=== PATIENT | female | born 1950 | race Caucasian/White ===

== ENCOUNTER 2018-01-28 10:16 | Outpatient (CLI) | payer MEDICARE ==
--- NOTE | 2018-01-28 11:49 | RAD ---
TWO VIEWS CHEST: Date: 01-28-18 Comparison: None. History: Costochondral chest pain. FINDINGS: There is no pneumothorax or pleural fluid. There is no focal consolidation or alveolar edema. Heart a nd mediastinal contours appear grossly unremarkable. Lateral examination demonstrates a pectus excavatum deformity. IMPRESSION: No acute findings. Incidental findings as above. POS: [facility]
== END 2018-01-28 10:17 | disposition home or self-care (01) ==
LOC: RAD-FRANK 10:16
PROVIDERS: ATTEND Nurse Practitioner Family
DX: R07.1 Chest pain on breathing (principal)
CPT/HCPCS: 71046

== ENCOUNTER 2018-04-08 12:11 | Outpatient (CLI) | payer MEDICARE ==
--- NOTE | 2018-04-22 15:32 | MMO ---
Bilateral MAMMO Bilat Screen [facility]. CLINICAL HISTORY: Patient is 67 years old and is seen for screening. The patient has the following family history of breast cancer: grandmother. The patient has no personal history of cancer. VIEWS: The views performed were: bilateral craniocaudal with tomosynthesis and bilateral mediolateral oblique with tomosynthesis. FILMS COMPARED: The present examination has been compared to a prior imaging study performed at [facility] on 01/13/2017. MAMMOGRAM FINDINGS: The breasts are heterogeneously dense, which could obscure a lesion on mammography. There are benign appearing calcifications seen in both breasts. There are no suspicious masses, calcifications or areas of architectural distortion. IMPRESSION: CALCIFICATIONS IN BOTH BREASTS ARE BENIGN. A ROUTINE FOLLOW-UP MAMMOGRAM IN 1 YEAR IS RECOMMENDED. THE RESULTS OF THIS EXAM WERE SENT TO THE PATIENT. ACR BI-RADS Category 2 - Benign finding MAMMOGRAPHY NOTE: 1. A negative mammogram report should not delay a biopsy if a dominant of clinically suspicious mass is present. 2. Approximately 10% to 15% of breast cancers are not detected by mammography. 3. Adenosis and dense breasts may obscure an underlying neoplasm.
== END 2018-04-08 12:12 | disposition home or self-care (01) ==
LOC: BICMAMMO 12:11
PROVIDERS: ATTEND Nurse Practitioner Family
DX: Z12.31 Encounter for screening mammogram for malignant neoplasm of breast (principal); R92.1 Mammographic calcification found on diagnostic imaging of breast; Z80.3 Family history of malignant neoplasm of breast
CPT/HCPCS: 77063; 77067

== ENCOUNTER 2018-04-13 14:12 | Outpatient (CLI) | payer MEDICARE ==
--- NOTE | 2018-04-13 15:25 | ULT ---
RIGHT UNILATERAL VENOUS DOPPLER ULTRASOUND: HISTORY: Pain. COMPARISON: None. TECHNIQUE: Real-time, ramey-scale, color Doppler, and spectral analysis of the right lower extremity venous syste m is performed. The common femoral, femoral, proximal portion, greater saphenous, and deep femoral v eins, as well as the popliteal and posterior tibial veins are interrogated. FINDINGS: Normal flow, augmentation, and compression. IMPRESSION: No deep venous thrombosis. POS: [facility]
== END 2018-04-13 14:13 | disposition home or self-care (01) ==
LOC: BICULT 14:12
PROVIDERS: ATTEND Nurse Practitioner Family
DX: M79.604 Pain in right leg (principal)

== ENCOUNTER 2018-05-18 15:14 | Outpatient (CLI) | payer MEDICARE ==
--- NOTE | 2018-06-17 08:31 | RAD ---
EXAM: Chest Two Views 06/17/2018 8:28 AM HISTORY: TB evaluation COMPARISON: Chest radiograph dated January 28, 2018 FINDINGS: Exam submitted for interpretation on 06/17/2018. Heart: Normal in size and contour. Pulmonary vessels: Normal. Costophrenic angles: Clear. Lungs: No confluent pneumonia, overt edema, pleural effusion, or other acute process. Pneumothorax: None. Osseous structures:Intact. Additional findings: None. IMPRESSION: No significant acute intrathoracic disease.
== END 2018-05-18 15:15 | disposition home or self-care (01) ==
LOC: RAD-FRANK 15:14
PROVIDERS: ATTEND Nurse Practitioner Family
DX: R76.11 Nonspecific reaction to tuberculin skin test without active tuberculosis (principal)
CPT/HCPCS: 71046

== ENCOUNTER 2018-07-04 14:07 | Inpatient (IN) | payer MEDICARE ==
[2018-07-04 14:33] LABS: #Basophils 0.1 thou/uL (0.0-0.2); #Eosinphils 0.1 thou/uL (0.0-0.7); #Lymphocytes 2.1 thou/uL (1.20-3.40); #Monocytes 0.6 thou/uL (0.11-0.59); #Neutrophils 7.1 thou/uL (1.40-6.50); %Basophils 0.8 % (0.0-1.0); %Lymphocytes 20.9 % (21.0-51.0); %Monocytes 6.1 % (0.0-10.0); %Neutrophils 71.1 % (42.0-75.0); Hemoglobin 13.9 g/dL (12.0-16.0); Mean Corpuscular HGB CONC 34.4 g/dL (32.0-36.0); Mean Corpuscular Hemoglobin 31.1 pg (27.0-31.0); Mean Corpuscular Volume 90.3 fL (78.0-98.0); Mean Platelet Volume 8.9 fL (7.4-10.4); Platelet Count 204 thou/uL (130-400); Red Blood Cell (RBC) Count 4.47 mill/uL (4.20-5.40)
--- NOTE | 2018-07-04 14:42 | RAD ---
EXAM: Single view of the chest HISTORY: Syncope at a restaurant. Hit head on table. COMPARISON: None FINDINGS: Single view of the chest shows a normal sized cardiomediastinal silhouette. There is no kaci dence of consolidation, mass, or pleural effusion. The bones are unremarkable. IMPRESSION: No evidence of acute cardiopulmonary disease
[2018-07-04 14:55] LABS: ALT (SGPT) 14 U/L (8-55); AST (SGOT) 20 U/L (5-34); Albumin 4.4 g/dL (3.4-4.8); Alkaline Phosphatase 73 U/L (40-150); Anion Gap 14 mmol/L (10-20); BUN (Urea Nitrogen) 18 mg/dL (9.8-20.1); Bilirubin, Total 0.7 mg/dL (0.2-1.2); Calc. Creatinine Clearance 0 mL/min (70-130); Calcium 10.1 mg/dL (7.8-10.44); Carbon Dioxide 24 mmol/L (23-31); Chloride 103 mmol/L (98-107); Estimated GFR-MDRD 74; Globulin 2.8 g/dL (2.4-3.5); Glucose 114 mg/dL (80-115); Magnesium 2.1 mg/dL (1.6-2.6); Potassium 3.8 mmol/L (3.5-5.1); Protein, Total 7.2 g/dL (6.0-8.3); Sodium 137 mmol/L (136-145)
[2018-07-04] MEDS ORDERED: Aspirin Chewable 81 MG TAB ONE (15:39)
[2018-07-04] MEDS ORDERED: Enoxaparin Sodium 100 MG/ML SYRINGE ONE (15:50)
[2018-07-04] MEDS ORDERED: Acetaminophen 325 MG TAB PO PRN (16:16)
[2018-07-04] MEDS ORDERED: Ondansetron ODT 4 MG TAB SL PRN (17:25)
[2018-07-04] MEDS ORDERED: Ondansetron PF 4 MG/2 ML Vial IVP PRN (17:25)
[2018-07-04 18:27] VITALS: BMI 30.9
[2018-07-04 18:39] LABS: Troponin I Less than 0.010 ng/mL (< 0.028)
[2018-07-04] MEDS: Famotidine/PF 20 mg/2ml Vial SLOW IVP SCH (20:38)
[2018-07-04] MEDS: Enoxaparin Sodium 80 MG/0.8 ML SYRINGE SC SCH (20:38)
[2018-07-04 21:58] LABS: Troponin I Less than 0.010 ng/mL (< 0.028)
--- NOTE | 2018-07-04 22:11 | HP ---
CHIEF COMPLAINT: Syncope. HISTORY OF PRESENT ILLNESS: The patient is a 67-year-old female with a history of hypertension, anxiety, and hypothyroidism, who presents to the hospital after having a syncopal episode today. The patient stated that yesterday she walked about two blocks with her grandkids. After her walk, she felt very lightheaded and felt in a daze. The patient stated that she sat down in a chair for long periods of time and then went off to bed. The patient stated that she just did not feel well. She attributed this to possible dehydration since it was really hot outside yesterday. The patient also states that she has had multiple episodes of dehydration. The patient states that at times in the past she has had chest pain, which she has attributed to costochondritis given her abnormal chest wall area. She denies any chest pain or pressure recently. The patient stated that today she went out with her , had a full lunch, and started feeling unwell; when her came around to help her, she was slumped over and passed out. At this time, EMS was summoned and the patient was brought into the ER for further evaluation. In the ED, the patient was found to be in sinus-marino; however, when the patient was undergoing a chest x-ray, she had about 8 to 10 beats of ventricular tachycardia. The patient at that time was asymptomatic and at this time, Cardiology was called. PAST MEDICAL HISTORY: 1. Hypertension. 2. Hypothyroidism. 3. Anxiety. 4. Some bladder issues and latent TB. PAST SURGICAL HISTORY: She has had appendectomy, tonsillectomy and hysterectomy. SOCIAL HISTORY: She is a full code, lives with her . Denies any alcohol use or drug use. Occasionally, seldom use of beer. FAMILY HISTORY: Mother has heart disease. REVIEW OF SYSTEMS: All negative except for the ones mentioned above in HPI. MEDICATIONS: She does not recall the name of her medications. I have advised the family to bring her medications. ALLERGIES: SHE HAS NO KNOWN DRUG ALLERGIES. PHYSICAL EXAMINATION: VITAL SIGNS: Temperature of 98.5, heart rate of 58, respirations 16, 100% on room air, blood pressure 134/74. GENERAL: She is awake, alert, and oriented x3. Does not appear in distress. HEENT: Normocephalic, atraumatic. No lymphadenopathy noted. Pupils are equal and reactive to light. CV: S1 and S2 present. No murmurs, rubs, or gallops. LUNGS: Clear to auscultation. No rhonchi or wheezes noted. ABDOMEN: Soft and nontender. Bowel sounds are present x2. EXTREMITIES: No edema. Pedal pulses are present x2. NEUROVASCULAR: No focal deficits noted. SKIN: No cuts, lesions or bruises noted. LABORATORY DATA: Laboratory results are as of the following: WBCs of 10.0, hemoglobin of 13.9, hematocrit of 40.4, platelets of 204. Sodium of 137, potassium of 3.8, BUN of 18, creatinine 0.78. Troponin x1 is negative. TSH is 0.2116. Chest x-ray did not show any acute processes. ASSESSMENT AND PLAN: The patient is a very pleasant 67-year-old female, who presents to the hospital after having a syncopal episode. 1. Syncope, most likely secondary to cardiac arrhythmia. The patient did have about 8 to 10 beats, I believe, of ventricular tachycardia while she was here. Cardiology has been consulted. We will check an echocardiogram. We will start the patient on Lovenox and aspirin. The patient will most likely require cardiac catheterization. Currently, she is n.p.o. and she is chest pain free. 2. Hypertension. I have asked the family to bring her blood pressure medications in. She denies use of any beta blockers. 3. History of hypothyroidism. We will check a free T4 and continue her home medications. 4. Deep venous thrombosis prophylaxis. She is probably going to be on full-dose anticoagulation. Job ID: [id number]
--- NOTE | 2018-07-04 22:30 | CON ---
DATE OF CONSULTATION: 07/04/2018 REASON FOR CONSULTATION: Syncope, sinus bradycardia, ventricular tachycardia. HISTORY OF PRESENT ILLNESS: Ms. Coates is a very pleasant 67-year-old woman. She has a history of hypertension and she has a history of hypothyroidism, is on replacement therapy. The patient was doing well up until yesterday. She said she walked outside when it was relatively hot, got lightheaded, drank a lot of water, felt better, but then today she felt well. She went to eat at the [employer]. She was sitting at the table when she suddenly felt very lightheaded and then after only a few seconds completely lost consciousness. Her said she fell straight forward onto the table. He went over and rested her to side and had her back up upright in a sitting position when she came to she said she remembers not being able to breathe well. An ambulance was called. She was brought here for further evaluation. Since she has been here, she has had some sinus bradycardia and one episode of monomorphic ventricular tachycardia. No previous history of cardiac problems. PAST MEDICAL HISTORY: She has a history of hypertension. The patient was on an angiotensin receptor fernando. It was no longer available. She had to be changed to a different medicine in the same class of angiotensin receptor blockers. No other blood pressure medicines. FAMILY HISTORY: No family history of heart disease at young age. SOCIAL HISTORY: No alcohol or tobacco abuse. REVIEW OF SYSTEMS: CONSTITUTIONAL: No significant weight gain or loss. VISION: No changes. HEARING: No changes. PULMONARY: No cough or wheezing. GASTROINTESTINAL: No nausea, vomiting or diarrhea. SKIN: No rashes. NEUROLOGIC: No unilateral weakness or numbness. PSYCHIATRIC: No unusual depression or anxiety. HEMATOLOGIC: No unusual bruising. GENITOURINARY: No burning with urination MUSCULOSKELETAL: No unusual joint pain. ALLERGY: None known. PHYSICAL EXAMINATION: GENERAL: This is a pleasant 67-year-old woman, resting comfortably, in no distress. VITAL SIGNS: The blood pressures in the emergency room have been within normal limits. Please see nurse's notes. Pulse is in the 50s, it is sinus bradycardia. EYES: Sclerae nonicteric. MOUTH: Mucous membranes moist. NECK: Supple. No lymphadenopathy. LUNGS: Clear. No wheezing, rales, or rhonchi. CARDIAC: Mild bradycardia, but there is no murmur, rub, or gallop. ABDOMEN: Soft and nontender. No hepatosplenomegaly. EXTREMITIES: Warm and dry. Peripheral pulses are normal. Posterior tibial and dorsalis pedis pulses bilaterally. PERTINENT LABORATORY DATA: The troponin levels were negative. EKG showed no acute ST or T-wave changes. The QRS has normal width, the PA interval has normal width, QT interval has normal width. Echocardiogram showed the ejection fraction is normal. There is no significant valvular heart disease. The patient did have an episode of monomorphic ventricular tachycardia. The rate was approximately 160 beats per minute with some variability in the heart rate, it is a 14-beat episode of ventricular tachycardia. There is no pause following the tachycardia. ASSESSMENT: Syncopal episode. Sinus bradycardia. Ventricular tachycardia, nonsustained. Normal left ventricular function. History of hypertension, on angiotensin receptor fernando. Hypothyroidism on replacement therapy. At this time, it seems very likely that her symptom was related to a dysrhythmia that occurred suddenly with very little warning and in the sitting position. In addition, she came to while she was still sitting, which argues for an arrhythmia that had terminated and her blood pressure came back up. It really does not sound like vasovagal syncope. Certainly could have fainted due to significant symptomatic sinus bradycardia or pauses. Also ventricular tachycardia can certainly cause fainting in a sitting position. She currently has no evidence of any left ventricular dysfunction, but could have underlying coronary disease. PLAN: 1. She received a single dose of Lovenox. 2. Echocardiogram was within normal limits as outlined above. Please see the report for the full details. 3. We will likely need cardiac catheterization to see, if she has underlying coronary disease. 4. Depending on the clinical course, she may need electrophysiologic evaluation in view of the ventricular tachycardia with syncope. 5. Further cardiac enzymes to be done. We will continue to follow with you. 6. Prognosis guarded. Most likely did have an arrhythmia causing her syncopal episode. Job ID: [id number]
[2018-07-05 06:38] LABS: #Basophils 0.1 thou/uL (0.0-0.2); #Eosinphils 0.1 thou/uL (0.0-0.7); #Lymphocytes 1.9 thou/uL (1.20-3.40); #Monocytes 0.5 thou/uL (0.11-0.59); #Neutrophils 4.2 thou/uL (1.40-6.50); %Eosinophils 1.1 % (0.0-10.0); %Monocytes 7.1 % (0.0-10.0); %Neutrophils 62.8 % (42.0-75.0); Hemoglobin 14.4 g/dL (12.0-16.0); Mean Corpuscular Hemoglobin 30.3 pg (27.0-31.0); Mean Platelet Volume 8.3 fL (7.4-10.4); Platelet Count 207 thou/uL (130-400); RBC Distribution Width 12.1 % (11.5-14.5); Red Blood Cell (RBC) Count 4.76 mill/uL (4.20-5.40); White Blood Cell (WBC) Count 6.7 thou/uL (4.8-10.8)
[2018-07-05 06:58] LABS: Anion Gap 11 mmol/L (10-20); BUN (Urea Nitrogen) 15 mg/dL (9.8-20.1); Calc. Creatinine Clearance 108 mL/min (70-130); Calcium 9.9 mg/dL (7.8-10.44); Carbon Dioxide 24 mmol/L (23-31); Chloride 108 mmol/L (98-107); Estimated GFR-MDRD 80; Glucose 90 mg/dL (80-115); Sodium 139 mmol/L (136-145)
[2018-07-05] MEDS ORDERED: Aspirin 325 mg Enteric Coated Tablet PO SCH (09:00)
[2018-07-05] MEDS: Enoxaparin Sodium 80 MG/0.8 ML SYRINGE SC SCH (09:57)
[2018-07-05] MEDS: Famotidine/PF 20 mg/2ml Vial SLOW IVP SCH ×2 (09:59→22:06)
--- NOTE | 2018-07-05 10:27 | PDOC.PN ---
- Subjective Encounter Start Date: 07/05/18 Encounter Start Time: 09:50 -: old records requested/rev Patient seen and examined. No new complaints. No overnight events - Objective Resuscitation Status - Order Detail: 07/04/18 16:16 Resuscitation Status Routine Resuscitation Status: FULL: Full Resuscitation MAR Reviewed: Yes Vital Signs & Weight: Vital Signs (12 hours) Temp Pulse Ox 07/05/18 08:27 98 07/05/18 07:15 96.6 F L 07/05/18 04:20 98.3 F 07/05/18 00:26 97.4 F L Weight Weight 197 lb 3.2 oz Most Recent Monitor Data Heart Rate from ECG 66 NIBP 120/61 NIBP BP-Mean 80 Respiration from ECG 19 SpO2 99 I&O: 07/04/18 07/05/18 07/06/18 06:59 06:59 06:59 Intake Total 370 Output Total 625 Balance -255 Result Diagrams: 07/05/18 06:19 07/05/18 06:19 Radiology Reviewed by me: Yes EKG Reviewed by me: Yes (sinus bradycardia) Phys Exam - Physical Examination Constitutional: NAD HEENT: PERRLA, moist MMs, sclera anicteric Neck: no JVD, supple Respiratory: no wheezing, no rales, no rhonchi Cardiovascular: RRR, no significant murmur, no rub Gastrointestinal: soft, non-tender, no distention, positive bowel sounds Musculoskeletal: no edema, pulses present Neurological: non-focal, normal sensation, moves all 4 limbs Lymphatic: no nodes Psychiatric: normal affect, A&O x 3 Skin: no rash, normal turgor Dx/Plan (1) Syncope, cardiogenic Code(s): R55 - SYNCOPE AND COLLAPSE Status: Acute (2) NSVT (nonsustained ventricular tachycardia) Code(s): I47.2 - VENTRICULAR TACHYCARDIA Status: Acute (3) Sinus bradycardia Code(s): R00.1 - BRADYCARDIA, UNSPECIFIED Status: Acute (4) Anxiety and depression Code(s): F41.9 - ANXIETY DISORDER, UNSPECIFIED; F32.9 - MAJOR DEPRESSIVE DISORDER, SINGLE EPISODE, UNSPECIFIED Status: Chronic (5) GERD (gastroesophageal reflux disease) Code(s): K21.9 - GASTRO-ESOPHAGEAL REFLUX DISEASE WITHOUT ESOPHAGITIS Status: Chronic (6) Hypertension Code(s): I10 - ESSENTIAL (PRIMARY) HYPERTENSION Status: Chronic (7) Hypothyroidism Code(s): E03.9 - HYPOTHYROIDISM, UNSPECIFIED Status: Chronic (8) Obesity (BMI 30.0-34.9) Code(s): E66.9 - OBESITY, UNSPECIFIED Status: Chronic - Plan cont current plan of care * transfer to tele * cardiology recommendation noted * medication reviewed as below * symptomatic treatment * will monitor. may need further evaluation, ?cardiac cath and or EP * DC Lovenox Review of Systems - Review of Systems ENT: negative: Ear Pain, Ear Discharge, Nose Pain, Nose Discharge, Nose Congestion, Mouth Pain, Mouth Swelling, Throat Pain, Throat Swelling, Other Respiratory: negative: Cough, Dry, Shortness of Breath, Hemoptysis, SOB with Excertion, Pleuritic Pain, Sputum, Wheezing Cardiovascular: negative: chest pain, palpitations, orthopnea, paroxysmal nocturnal dyspnea, edema, light headedness, other Gastrointestinal: negative: Nausea, Vomiting, Abdominal Pain, Diarrhea, Constipation, Melena, Hematochezia, Other Genitourinary: negative: Dysuria, Frequency, Incontinence, Hematuria, Retention , Other Musculoskeletal: negative: Neck Pain, Shoulder Pain, Arm Pain, Back Pain, Hand Pain, Leg Pain, Foot Pain, Other Skin: negative: Rash, Lesions, Gopal, Bruising, Other - Medications/Allergies Allergies/Adverse Reactions: Allergies Allergy/AdvReac Type Severity Reaction Status Date / Time No Known Allergies Allergy Verified 07/04/18 18:21 Medications: Current Medications Acetaminophen (Tylenol) 650 mg PO Q4H PRN PRN Reason: Headache/Fever/Mild Pain (1-3) Aspirin (Ecotrin) 325 mg PO DAILY [facility] Last Admin: 07/05/18 09:57 Dose: 325 mg Enoxaparin Sodium (Lovenox) 80 mg SC 0900,2100 [facility] Last Admin: 07/05/18 09:57 Dose: 80 mg Famotidine (Pepcid) 20 mg SLOW IVP Q12HR [facility] Last Admin: 07/05/18 09:59 Dose: 20 mg Sodium Chloride (Flush - Normal Saline) 10 ml IVF Q12HR [facility] Last Admin: 07/05/18 10:18 Dose: 10 ml Sodium Chloride (Flush - Normal Saline) 10 ml IVF PRN PRN PRN Reason: Saline Flush
[2018-07-05] MEDS ORDERED: Ondansetron PF 4 MG/2 ML Vial IVP PRN (10:28)
[2018-07-05] MEDS ORDERED: Loratadine 10 MG TAB PO PRN (10:28)
[2018-07-05] MEDS ORDERED: Cepastat Lozenges 1 LOZ PO PRN (10:28)
[2018-07-05] MEDS ORDERED: Loperamide HCl 2 MG CAP PO PRN (10:28)
[2018-07-05] MEDS ORDERED: Ondansetron ODT 4 MG TAB PO PRN (10:28)
[2018-07-05] MEDS ORDERED: Bisacodyl 10 MG SUPP PR PRN (10:28)
[2018-07-05] MEDS ORDERED: Diabetic Tussin 200 MG/10 ML UDCUP PO PRN (10:28)
[2018-07-05] MEDS ORDERED: Artificial Tears 18 DROP/0.9 ML EA EYE PRN (10:28)
[2018-07-05] MEDS ORDERED: Zolpidem Tartrate 5 MG TAB PO PRN (10:28)
[2018-07-05] MEDS ORDERED: hydrALAZINE 20 MG/ML VIAL SLOW IVP PRN (10:28)
[2018-07-05] MEDS ORDERED: HYDROcodone/Acetaminophen 5/325 mg Tablet PO PRN (10:28)
[2018-07-05] MEDS ORDERED: Sodium Chloride 0.65% Nasal 44 ML BOT EA NARE PRN (10:28)
[2018-07-05] MEDS ORDERED: Senokot S 8.6-50 MG TAB PO PRN (10:28)
[2018-07-05] MEDS ORDERED: Communication Order-Pharmacy FS SCH (10:45)
--- NOTE | 2018-07-05 11:05 | PRG ---
DATE OF SERVICE: 07/05/2018 SUBJECTIVE: Ms. Coates had a good night. No chest pain or pressure. OBJECTIVE: GENERAL: She is feeling well. VITAL SIGNS: Her blood pressure 120/60 and pulse 90. LUNGS: Clear. CARDIAC: Normal S1, normal S2. ABDOMEN: Soft and nontender. IMAGING STUDIES: Echocardiogram was unremarkable. Cardiac enzymes were negative. ASSESSMENT: 1. Syncopal episode in the sitting position without much warning. 2. Mild sinus bradycardia identified. 3. One episode of nonsustained ventricular tachycardia. PLAN: Need to see if she has underlying coronary disease. Discussed risk of cardiac catheterization and stenting if indicated. Discussed risk, stroke, heart attack, iodine allergy, loss of blood supply to leg or kidney, stent thrombosis, and stent restenosis. The patient understands and wished to proceed. If the cardiac catheterization is negative, we will need electrophysiologic consultation. Job ID: [id number]
[2018-07-05] MEDS ORDERED: FESOTERODINE FUMARATE 4 MG PO SCH (21:00)
[2018-07-06] MEDS: Losartan 25 MG TAB PO SCH (05:57)
[2018-07-06] MEDS: PARoxetine 20 MG TAB PO SCH (06:00)
[2018-07-06] MEDS ORDERED: Sodium Chloride 0.9% 1,000 ML IV SCH (06:00)
[2018-07-06] MEDS ORDERED: Diazepam 5 MG TAB PO SCH (06:00)
[2018-07-06] MEDS: Levothyroxine Sodium 100 MCG TAB PO SCH (06:00)
[2018-07-06] MEDS: Famotidine/PF 20 mg/2ml Vial SLOW IVP SCH (06:12)
[2018-07-06] MEDS ORDERED: Spironolactone 25 MG TAB PO SCH (08:00)
[2018-07-06] MEDS ORDERED: Fentanyl 100 MCG/2 ML VIAL ONE (08:01)
[2018-07-06] MEDS ORDERED: Midazolam HCl 2 mg/2 ml Vial ONE (08:02)
[2018-07-06] MEDS ORDERED: Sodium Chloride 0.9% 200 ML IV PRN (08:40)
[2018-07-06] MEDS ORDERED: Nitroglycerin 0.4 MG TAB (25 Tab Bottle) SL PRN (08:40)
[2018-07-06] MEDS ORDERED: Acetaminophen/Codeine 30-300mg Tablet PO PRN ×2 (08:40)
[2018-07-06] MEDS ORDERED: Aspirin 81 mg Enteric Coated Tablet PO SCH (09:00)
[2018-07-06] MEDS ORDERED: Trospium 20 MG TAB PO SCH (09:00)
[2018-07-06] MEDS ORDERED: Iopamidol 370 76% 100 ML VIAL ONE (11:40)
--- NOTE | 2018-07-06 14:28 | PDOC.PN ---
- Subjective Encounter Start Date: 07/06/18 Encounter Start Time: 14:26 Subjective: pt up in bed no complains - Objective Resuscitation Status - Order Detail: 07/04/18 16:16 Resuscitation Status Routine Resuscitation Status: FULL: Full Resuscitation Vital Signs & Weight: Vital Signs (12 hours) Temp Pulse Resp BP BP BP Pulse Ox 07/06/18 13:00 98.2 F 57 L 18 127/60 100 07/06/18 12:00 98.2 F 55 L 18 122/55 L 100 07/06/18 09:00 50 L 16 136/63 07/06/18 07:20 98.2 F 55 L 18 127/62 99 07/06/18 03:50 97.6 F 65 14 117/58 L 99 Weight Weight 197 lb 3.2 oz Most Recent Monitor Data Heart Rate from ECG 67 NIBP 105/52 NIBP BP-Mean 69 Respiration from ECG 26 SpO2 97 I&O: 07/05/18 07/06/18 07/07/18 06:59 06:59 06:59 Intake Total 289 781 7330 Output Total 625 900 Balance -255 322 180 Result Diagrams: 07/05/18 06:19 07/05/18 06:19 Phys Exam - Physical Examination Respiratory: no wheezing, no rales, no rhonchi, wheezing present, clear to auscultation bilateral Cardiovascular: RRR, no significant murmur, no rub, gallop, irregular Gastrointestinal: soft, non-tender, no distention, positive bowel sounds Dx/Plan (1) Syncope, cardiogenic Code(s): R55 - SYNCOPE AND COLLAPSE Status: Acute (2) NSVT (nonsustained ventricular tachycardia) Code(s): I47.2 - VENTRICULAR TACHYCARDIA Status: Acute (3) Anxiety and depression Code(s): F41.9 - ANXIETY DISORDER, UNSPECIFIED; F32.9 - MAJOR DEPRESSIVE DISORDER, SINGLE EPISODE, UNSPECIFIED Status: Chronic (4) Hypertension Code(s): I10 - ESSENTIAL (PRIMARY) HYPERTENSION Status: Chronic - Plan pt had her cath which indicated ef of 60% with normal coronary -: pt will be seen by EP in am for her Vtach. will keep pt npo after -: midnight tonight. * . Review of Systems - Review of Systems Respiratory: negative: Cough, Dry, Shortness of Breath, Hemoptysis, SOB with Excertion, Pleuritic Pain, Sputum, Wheezing Cardiovascular: negative: chest pain, palpitations, orthopnea, paroxysmal nocturnal dyspnea, edema, light headedness, other Gastrointestinal: negative: Nausea, Vomiting, Abdominal Pain, Diarrhea, Constipation, Melena, Hematochezia, Other - Medications/Allergies Allergies/Adverse Reactions: Allergies Allergy/AdvReac Type Severity Reaction Status Date / Time No Known Allergies Allergy Verified 07/04/18 18:21 Medications: Current Medications Acetaminophen (Tylenol) 650 mg PO Q4H PRN PRN Reason: Headache/Fever/Mild Pain (1-3) Acetaminophen/Codeine Phosphate (Tylenol #3) 1 tab PO Q4H PRN PRN Reason: Mild Pain (1-3) Acetaminophen/Codeine Phosphate (Tylenol #3) 2 tab PO Q4H PRN PRN Reason: Moderate Pain (4-6) Hydrocodone Bitart/Acetaminophen ([place] 5/325) 1 tab PO Q4H PRN PRN Reason: Moderate Pain (4-6) Artificial Tears (Tears Naturale) 2 drop EA EYE PRN PRN PRN Reason: Dry Eyes Bisacodyl (Dulcolax) 10 mg MA DAILYPRN PRN PRN Reason: Constipation Famotidine (Pepcid) 20 mg PO BID [facility] Guaifenesin (Robitussin Sf) 200 mg PO Q4H PRN PRN Reason: Cough Hydralazine HCl (Apresoline) 10 mg SLOW IVP Q4H PRN PRN Reason: SBP > 180 and HR < 70 Levothyroxine Sodium (Synthroid) 100 mcg PO 0600 [facility] Last Admin: 07/06/18 06:00 Dose: 100 mcg Loperamide HCl (Imodium) 2 mg PO PRN PRN PRN Reason: Diarrhea/Loose Stools Loratadine (Claritin) 10 mg PO DAILYPRN PRN PRN Reason: Sinus Symptoms Losartan Potassium (Cozaar) 100 mg PO DAILY [facility] Last Admin: 07/06/18 05:57 Dose: 100 mg Nitroglycerin (Nitrostat) 0.4 mg SL Q5MIN PRN PRN Reason: Chest Pain Non-Formulary Medication (Fesoterodine Fumarate [Toviaz]) 4 mg PO QPM [facility] Ondansetron HCl (Zofran Odt) 4 mg PO Q6H PRN PRN Reason: Nausea/Vomiting Ondansetron HCl (Zofran) 4 mg IVP Q6H PRN PRN Reason: Nausea/Vomiting Paroxetine HCl (Paxil) 20 mg PO DAILY [facility] Last Admin: 07/06/18 06:00 Dose: 20 mg Senna/Docusate Sodium (Senokot S) 2 tab PO BID PRN PRN Reason: Constipation Sodium Chloride (Flush - Normal Saline) 10 ml IVF Q12HR [facility] Last Admin: 07/06/18 13:33 Dose: Not Given Sodium Chloride (Flush - Normal Saline) 10 ml IVF PRN PRN PRN Reason: Saline Flush Sodium Chloride ([place] Nasal [place] 0.65%) 0 ml EA NARE QIDPRN PRN PRN Reason: Nasal Congestion Spironolactone (Aldactone) 25 mg PO QAM-WM [facility] Throat Lozenges (Cepastat Lozenges) 1 robby PO Q2H PRN PRN Reason: Sore Throat Zolpidem Tartrate (Ambien) 5 mg PO HSPRN PRN PRN Reason: Insomnia
[2018-07-06] MEDS: Famotidine 20 MG TAB PO SCH (21:05)
[2018-07-07] MEDS: Levothyroxine Sodium 100 MCG TAB PO SCH (05:51)
[2018-07-07] MEDS ORDERED: Spironolactone 25 MG TAB PO SCH (08:00)
[2018-07-07 08:15] VITALS: TEMP 98.1
--- NOTE | 2018-07-07 10:42 | PDOC.PN ---
- Subjective Encounter Start Date: 07/07/18 Encounter Start Time: 07:50 -: old records requested/rev Patient seen and examined. No new complaints. No overnight events - Objective Resuscitation Status - Order Detail: 07/04/18 16:16 Resuscitation Status Routine Resuscitation Status: FULL: Full Resuscitation MAR Reviewed: Yes Vital Signs & Weight: Vital Signs (12 hours) Temp Pulse Resp BP BP Pulse Ox 07/07/18 07:25 98.1 F 55 L 18 116/55 L 96 07/07/18 03:39 97.6 F 56 L 15 128/59 L 98 Weight Weight 197 lb 3.2 oz Most Recent Monitor Data Heart Rate from ECG 67 NIBP 105/52 NIBP BP-Mean 69 Respiration from ECG 26 SpO2 97 I&O: 07/06/18 07/07/18 07/08/18 06:59 06:59 06:59 Intake Total 322 1320 Output Total 1350 Balance 322 -30 Result Diagrams: 07/05/18 06:19 07/05/18 06:19 EKG Reviewed by me: Yes Phys Exam - Physical Examination Constitutional: NAD HEENT: PERRLA, moist MMs, sclera anicteric Neck: no JVD, supple Respiratory: no wheezing, no rales, no rhonchi Cardiovascular: RRR, no significant murmur, no rub Gastrointestinal: soft, non-tender, no distention, positive bowel sounds Musculoskeletal: no edema, pulses present Neurological: non-focal, normal sensation, moves all 4 limbs Psychiatric: normal affect, A&O x 3 Skin: no rash, normal turgor Dx/Plan (1) Syncope, cardiogenic Code(s): R55 - SYNCOPE AND COLLAPSE Status: Acute (2) NSVT (nonsustained ventricular tachycardia) Code(s): I47.2 - VENTRICULAR TACHYCARDIA Status: Acute (3) Sinus bradycardia Code(s): R00.1 - BRADYCARDIA, UNSPECIFIED Status: Acute (4) Anxiety and depression Code(s): F41.9 - ANXIETY DISORDER, UNSPECIFIED; F32.9 - MAJOR DEPRESSIVE DISORDER, SINGLE EPISODE, UNSPECIFIED Status: Chronic (5) GERD (gastroesophageal reflux disease) Code(s): K21.9 - GASTRO-ESOPHAGEAL REFLUX DISEASE WITHOUT ESOPHAGITIS Status: Chronic (6) Hypertension Code(s): I10 - ESSENTIAL (PRIMARY) HYPERTENSION Status: Chronic (7) Hypothyroidism Code(s): E03.9 - HYPOTHYROIDISM, UNSPECIFIED Status: Chronic (8) Obesity (BMI 30.0-34.9) Code(s): E66.9 - OBESITY, UNSPECIFIED Status: Chronic - Plan cont current plan of care, plan discussed w/ family * EP consulted * medication reviewed as below * symptomatic treatment * discharge based on EP recommendation. Review of Systems - Review of Systems ENT: negative: Ear Pain, Ear Discharge, Nose Pain, Nose Discharge, Nose Congestion, Mouth Pain, Mouth Swelling, Throat Pain, Throat Swelling, Other Respiratory: negative: Cough, Dry, Shortness of Breath, Hemoptysis, SOB with Excertion, Pleuritic Pain, Sputum, Wheezing Cardiovascular: negative: chest pain, palpitations, orthopnea, paroxysmal nocturnal dyspnea, edema, light headedness, other Gastrointestinal: negative: Nausea, Vomiting, Abdominal Pain, Diarrhea, Constipation, Melena, Hematochezia, Other Genitourinary: negative: Dysuria, Frequency, Incontinence, Hematuria, Retention , Other Musculoskeletal: negative: Neck Pain, Shoulder Pain, Arm Pain, Back Pain, Hand Pain, Leg Pain, Foot Pain, Other - Medications/Allergies Allergies/Adverse Reactions: Allergies Allergy/AdvReac Type Severity Reaction Status Date / Time No Known Allergies Allergy Verified 07/04/18 18:21 Medications: Current Medications Acetaminophen (Tylenol) 650 mg PO Q4H PRN PRN Reason: Headache/Fever/Mild Pain (1-3) Acetaminophen/Codeine Phosphate (Tylenol #3) 1 tab PO Q4H PRN PRN Reason: Mild Pain (1-3) Acetaminophen/Codeine Phosphate (Tylenol #3) 2 tab PO Q4H PRN PRN Reason: Moderate Pain (4-6) Hydrocodone Bitart/Acetaminophen ([place] 5/325) 1 tab PO Q4H PRN PRN Reason: Moderate Pain (4-6) Artificial Tears (Tears Naturale) 2 drop EA EYE PRN PRN PRN Reason: Dry Eyes Bisacodyl (Dulcolax) 10 mg [place] DAILYPRN PRN PRN Reason: Constipation Famotidine (Pepcid) 20 mg PO BID FATIMAH Last Admin: 07/06/18 21:05 Dose: 20 mg Guaifenesin (Robitussin Sf) 200 mg PO Q4H PRN PRN Reason: Cough Hydralazine HCl (Apresoline) 10 mg SLOW IVP Q4H PRN PRN Reason: SBP > 180 and HR < 70 Levothyroxine Sodium (Synthroid) 100 mcg PO 0600 [facility] Last Admin: 07/07/18 05:51 Dose: 100 mcg Loperamide HCl (Imodium) 2 mg PO PRN PRN PRN Reason: Diarrhea/Loose Stools Loratadine (Claritin) 10 mg PO DAILYPRN PRN PRN Reason: Sinus Symptoms Losartan Potassium (Cozaar) 100 mg PO DAILY [facility] Last Admin: 07/06/18 05:57 Dose: 100 mg Nitroglycerin (Nitrostat) 0.4 mg SL Q5MIN PRN PRN Reason: Chest Pain Non-Formulary Medication (Fesoterodine Fumarate [Toviaz]) 4 mg PO QPM [facility] Ondansetron HCl (Zofran Odt) 4 mg PO Q6H PRN PRN Reason: Nausea/Vomiting Ondansetron HCl (Zofran) 4 mg IVP Q6H PRN PRN Reason: Nausea/Vomiting Paroxetine HCl (Paxil) 20 mg PO DAILY [facility] Last Admin: 07/06/18 06:00 Dose: 20 mg Senna/Docusate Sodium (Senokot S) 2 tab PO BID PRN PRN Reason: Constipation Sodium Chloride (Flush - Normal Saline) 10 ml IVF Q12HR [facility] Last Admin: 07/06/18 21:05 Dose: 10 ml Sodium Chloride (Flush - Normal Saline) 10 ml IVF PRN PRN PRN Reason: Saline Flush Sodium Chloride ([place] Nasal [place] 0.65%) 0 ml EA NARE QIDPRN PRN PRN Reason: Nasal Congestion Spironolactone (Aldactone) 25 mg PO QAM[facility] Throat Lozenges (Cepastat Lozenges) 1 robby PO Q2H PRN PRN Reason: Sore Throat Zolpidem Tartrate (Ambien) 5 mg PO HSPRN PRN PRN Reason: Insomnia
[2018-07-07] MEDS ORDERED: Heparin 10,000 UNITS/1 ML VIAL ONE (11:05)
[2018-07-07] MEDS ORDERED: Heparin 0 ML ONE (11:06)
[2018-07-07] MEDS ORDERED: Lidocaine 1% (PF) 30 ML VIAL ONE (11:06)
[2018-07-07] MEDS ORDERED: Lidocaine 1% w/Epinephrine 1:100K 20 ML VIAL ONE (11:06)
[2018-07-07] MEDS ORDERED: Lidocaine 1% PF 5 ML VIAL ONE (11:42)
[2018-07-07] MEDS ORDERED: PROPOFOL 200 MG/20 ML VIAL ONE (11:42)
[2018-07-07] MEDS: Losartan 25 MG TAB PO SCH (11:44)
[2018-07-07] MEDS: Famotidine 20 MG TAB PO SCH (11:44)
[2018-07-07] MEDS: PARoxetine 20 MG TAB PO SCH (11:44)
[2018-07-07] MEDS ORDERED: Fentanyl 100 MCG/2 ML VIAL ONE (12:17)
[2018-07-07] MEDS ORDERED: Midazolam HCl 2 mg/2 ml Vial ONE (12:17)
[2018-07-07] MEDS ORDERED: PROPOFOL 20 ML ONE (12:27)
--- NOTE | 2018-07-07 14:54 | CON ---
DATE OF CONSULTATION: 07/07/2018 I am seeing Ms. Coates at our 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 Her problems are; 1. Syncopal spell, recurrent. 2. Nonsustained ventricular tachycardia on monitor. 3. Structurally normal heart on workup with normal coronaries on left heart catheterization and 2D echo with normal LVEF. 4. Mild sinus bradycardia on presentation, now resolved. 5. History of hypertension. ALLERGIES: NONE NOTED. MEDICATIONS: At home included; 1. Losartan 100 mg a day. 2. Spironolactone 50 mg in the morning. 3. Paroxetine. 4. Lansoprazole. 5. Finasteride. SUBJECTIVE: Ms. Coates is here after a syncopal spell which occurred while she was having a breakfast at [employer]. She may have been busy and overheated the day before, but felt good in the morning of the event. Mild lightheadedness was occurring on the day before when she was around the town in the heat. She had passed out suddenly, hitting her face on the plate. Prior to that, she had some short sensation of dizziness, tunnel vision, but no headaches or nausea or vomiting was documented. She had some dyspnea after coming to, but no chest pains are documented. She had no sensation of palpitations, no fever, chills, or cough. No burning urination or diarrhea. She had no signs of PND, orthopnea, lower extremity edema or other fluid overload, and the rest of 12-point system otherwise unremarkable. PAST MEDICAL HISTORY: As above. She also has history of hypothyroidism, on replacement. She had some bladder issues and latent TB. FAMILY HISTORY: Negative for sudden cardiac . The mother had some heart disease. SOCIAL HISTORY: The patient lives with her . Denies excessive smoking, EtOH, or drug abuse. Seldom drinks beer. OBJECTIVE: VITAL SIGNS: Blood pressure is 160/55, heart rate 55, respiratory rate is 18, temperature 98.1 degrees Fahrenheit. Orthostatic blood pressures did not reveal significant drop. GENERAL: This is an alert and oriented woman, in no apparent distress. NECK: Supple. Jugular veins not distended. CHEST: Coarse without crackles. HEART: Sounds are regular to rate and rhythm. No murmur or gallop. ABDOMEN: Benign. Bowel sounds positive. EXTREMITIES: Lower extremities without edema, clubbing, or cyanosis. Pulses are adequate. NEUROLOGIC: The patient is nonfocal. MUSCULOSKELETAL: No joint swelling or deformity. SKIN: Without rash. DATABASE: The EKG is reviewed, revealing sinus rhythm, normal rates wit no abnormality, normal QT, no delta or epsilon waves, no significant ST-T changes are noted. Left heart catheterization is again revealing normal LVEF and normal coronary arteries. LABORATORY DATA: White cell count initially 10, hemoglobin 13.9, platelet count is 204. Sodium 139, potassium 4, BUN is 15, creatinine 0.73. Troponin levels are 0.01 x3. TSH is 0.216. Free T4 is 1.26, in normal range. Chest x-ray on 07/04 reveals no acute cardiopulmonary disease. ASSESSMENT AND PLAN: Ms. Coates is a very pleasant 67-year-old woman with prior history of hypertension, remote history of syncopal spell in the setting of pneumonia, who developed a sudden unexplained syncope, by history, clearly could be consistent with arrhythmic in origin. Her cardiac workup is so far negative, EKG also not revealing, but telemetry did reveal an episode of nonsustained ventricular tachycardia. We discussed the potential mechanism of her syncopal spell, blood pressure drop versus tachy and marino arrhythmias were all discussed. I am leaning towards a possible arrhythmic explanation, especially in view of the nonsustained ventricular tachycardia on monitor. I discussed the potential of an EP study, risks, benefits, and potential outcomes from it and also the consideration for a loop recorder if negative versus a pacemaker defibrillator if positive for tachy or bradyarrhythmias. Procedure was detailed including chance of infection, bleeding, pneumothorax, tamponade, device malfunctions were all discussed. She understands and is willing to proceed. We will get her scheduled up in the near time with me or my partner. Thank you again for allowing me to participate in the care of this patient. Job ID: [id number] [facility]
[2018-07-07 16:42] VITALS: BP 139/67
--- NOTE | 2018-07-07 17:31 | PRG ---
DATE OF SERVICE: 07/07/2018 SUBJECTIVE: Ms. Coates is doing well. She underwent electrophysiologic testing today. It was negative. She underwent a LINQ implantation. OBJECTIVE: VITAL SIGNS: Her blood pressure 139/67, earlier it was 116/55, pulse 67 and regular. LUNGS: Clear. CARDIAC: Normal S1, normal S2. ASSESSMENT: 1. Syncopal episode. 2. Negative electrophysiologic test. 3. Normal cardiac catheterization, normal coronary arteries. Normal left ventricular function. At this time, it seems most likely this is orthostatic hypotension. Okay to go home on the same medicines on admission except for no diuretics. Come see us in the office in a couple of months. The patient also has a LINQ implanted for monitoring. Job ID: [id number]
--- NOTE | 2018-07-08 09:34 | OP ---
DATE OF PROCEDURE: 07/07/2018 PROCEDURE PERFORMED: Electrophysiology study with induction attempt and implantable loop recorder. PREOPERATIVE DIAGNOSIS: Nonsustained ventricular tachycardia and syncope. DESCRIPTION OF PROCEDURE: The patient came to the EP lab in the postabsorptive state. Informed consent was obtained, and a time-out was called. The patient was sedated by member of the Anesthesia staff. Once the patient was adequately sedated, access was obtained in the right femoral vein x2. Two six-Faroese sheaths were placed. Through this, quadripolar catheter was advanced. Basic intervals revealed a MS interval of 163 milliseconds, QRS 99 milliseconds, QT 421 milliseconds, RR interval 1154 milliseconds, AH interval was 116 milliseconds, HV interval was 56 milliseconds, AV Wenckebach occurred at 550 milliseconds due to sedation. Pacing in the right ventricular apex at 600 milliseconds. Ventricular ERP was 220 milliseconds. At 500 milliseconds, ventricular ERP was 200 milliseconds, and at 400 milliseconds, ventricular ERP was 200 milliseconds. Single, double, and triple extrastimuli were delivered with triple extra stimuli at 500-millisecond cycle length. No inducible ventricular tachyarrhythmias were found. Based on this, catheters were removed. Sheaths were removed. Hemostasis was obtained with manual pressure. Implantable loop recorder was therefore placed along the fourth to fifth intercostal space. Her ILR, LNQ11, serial number [id number]. The puncture wounds for the implantable loop recorder were closed with Dermabond followed by Steri-Strips. The patient tolerated the procedure well and was awoken from anesthetic and discharged to the EP lab in stable condition. CONCLUSIONS: 1. Normal AV intervals. 2. No inducible ventricular tachyarrhythmias. 3. Successful implantation of implantable loop recorder. RECOMMENDATIONS: The patient will follow up with Dr. Jones. Job ID: [id number]
--- NOTE | 2018-07-08 13:08 | DIS ---
DATE OF ADMISSION: 07/04/2018 DATE OF DISCHARGE: 07/07/2018 PRIMARY CARE PHYSICIAN: [facility] Call admission. DISCHARGE DISPOSITION: Home. PRIMARY DISCHARGE DIAGNOSES: 1. Syncope, suspected for cardiogenic. 2. Nonsustained ventricular tachycardia. 3. Sinus bradycardia. 4. Status post cardiac cath and normal coronaries. 5. Status post electrophysiology study. 6. Status post implantation of implantable loop recorder. SECONDARY DISCHARGE DIAGNOSES: Obesity with BMI 30, anxiety and depression, hypothyroidism, hypertension, and gastroesophageal reflux disease. PRIMARY PROCEDURE/OPERATION: Cardiac catheterization, electrophysiologic study, and loop recorder placement. RADIOLOGICAL INVESTIGATION: Echocardiography was normal and chest x-ray is normal. SIGNIFICANT LABORATORY DATA: CBC normal. BMP normal. Cardiac enzyme negative. DISCHARGE MEDICATION: 1. Toviaz 4 mg p.o. daily. 2. Lansoprazole 30 mg daily. 3. Synthroid 100 mcg p.o. daily. 4. Losartan 100 mg p.o. daily. 5. Paxil 20 mg p.o. daily. CONTRAINDICATION: None. CODE STATUS: Full code. INPATIENT ATTIC BLOWER: Dr. Lomeli was following while in hospital. Dr. Gary Jones was consulted while in hospital. TEST RESULTS PENDING ON DISCHARGE: None. ALLERGIES: NO KNOWN DRUG ALLERGIES. DISCHARGE PLAN: Posthospital, the patient will follow up with primary care physician in one week. The patient will make appointment with Dr. Lomeli and Dr. Gary Jones as instructed. HOSPITAL COURSE: A 67-year-old female with above-mentioned medical problem, who was admitted by Dr. Live. Please see her H and P for further details. The patient was having syncopal episodes. She had sinus bradycardia and she had one time episode of nonsustained ventricular tachycardia. Cardiology was consulted. Echocardiography was unremarkable. Cardiology did a cardiac cath, which was normal and they recommended electrophysiology consultation, which was done and Dr. Jones saw this patient and subsequently, the patient had electrophysiologic study and a loop recorder placement. The patient was taking Aldactone, which was discontinued. Rest of medication was continued as per Cardiology recommendation. 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 Overall, the patient is medically stable for discharge today. Job ID: [id number]
== END 2018-07-07 19:29 | disposition home or self-care (01) | DRG 287 ==
LOC: ERS 14:07 → IMCU/EMU 15:30 → 2NO 07-05 12:23
PROVIDERS: ADMIT Internal Medicine; ATTEND Internal Medicine
PROC: 4A023N7 Measurement of Cardiac Sampling and Pressure, Left Heart, Percutaneous Approach (ICD-10-PCS; principal; 2018-07-04)
PROC: B2151ZZ Fluoroscopy of Left Heart using Low Osmolar Contrast (ICD-10-PCS; 2018-07-04)
PROC: B2111ZZ Fluoroscopy of Multiple Coronary Arteries using Low Osmolar Contrast (ICD-10-PCS; 2018-07-04)
DX: I95.1 Orthostatic hypotension (principal); I47.2 Ventricular tachycardia; I10 Essential (primary) hypertension; F41.9 Anxiety disorder, unspecified; E03.9 Hypothyroidism, unspecified; R00.1 Bradycardia, unspecified; E66.9 Obesity, unspecified; Z79.899 Other long term (current) drug therapy; Z90.49 Acquired absence of other specified parts of digestive tract; Z90.710 Acquired absence of both cervix and uterus; Z68.30 Body mass index [BMI] 30.0-30.9, adult
CPT/HCPCS: 33285; 36415; 71045; 76942; 80048; 80053; 83735; 84439; 84443; 84484; 85025; 93005; 93306; 93458; 93621; 94760; 96372; 99152; 99153; C1769; J0690; J1644; J1650; J2001; J2250; J2704; J3010; J3490; Q9967; S0028

== ENCOUNTER 2019-01-19 08:20 | Outpatient (CLI) | payer MEDICARE ==
--- NOTE | 2019-01-19 08:37 | RAD ---
XR Abdomen 1 View/KUB HISTORY: Abdominal bloating COMPARISON: None. FINDINGS: The bowel gas pattern is unremarkable. There is fecal material in the colon. There are dege nerative changes with mild levoscoliosis of the lumbar spine. No suspicious calcifications are identified.
== END 2019-01-19 08:21 | disposition home or self-care (01) ==
LOC: RAD-FRANK 08:20
PROVIDERS: ATTEND Nurse Practitioner Family
DX: R14.0 Abdominal distension (gaseous) (principal)
CPT/HCPCS: 74018

== ENCOUNTER 2019-04-01 12:46 | Outpatient (CLI) | payer MEDICARE ==
--- NOTE | 2019-04-01 13:47 | MRI ---
MRI of thebrain with and without contrast: 04/01/2019 COMPARISON:None available HISTORY:Mild cognitive impairment, syncope and collapse TECHNIQUE: Multiplanar multisequence MR imaging of thebrain with and without contrast Findings:The diffusion weighted imaging demonstrates no evidence for acute infarction. Axial gradient echo imaging demonstrates no evidence for intracranial hemorrhage. Partial opacification of the mastoid air cells bilaterally. Arterial flow voids at the axial level of the skull base appear intact on the T2-weighted imaging. No midline shift, mass effect, or ventricular enlargement. There are numerous scattered foci of increased T2 and FLAIR signal within the periventricular, deep, and subcortical white matter, suggesting a moderate degree of small vessel disease. The pineal gland is somewhat prominent with ventral calcification and dorsal somewhat masslike enhanc ement. The pineal gland measures in the 1.5 cm in the AP dimension with the dorsal enhancing component measuring in the 9-10 mm range. This probably represents a combination of a prominent pinea l gland with associated small cyst and calcification. In order to exclude a tumor within the pineal gland, a follow-up MRI of the brain is recommended in 6 months. IMPRESSION:Moderate small vessel disease. No acute findings. Prominence of the pineal gland including dorsal enhancement, significance uncertai n. Recommend short-term follow-up brain MRI with and without contrast in 6 months. Please see above discussion.
== END 2019-04-01 12:47 | disposition home or self-care (01) ==
LOC: MRI 12:46
PROVIDERS: ATTEND Psychiatry & Neurology Neurology
DX: G31.84 Mild cognitive impairment of uncertain or unknown etiology (principal); R55 Syncope and collapse; I67.9 Cerebrovascular disease, unspecified
CPT/HCPCS: 70553; 82565

== ENCOUNTER 2019-06-18 14:35 | Outpatient (CLI) | payer MEDICARE ==
--- NOTE | 2019-06-21 08:00 | MMO ---
Bilateral MAMMO Bilat Screen [facility]. CLINICAL HISTORY: Patient is 68 years old and is seen for screening. The patient has the following family history of breast cancer: grandmother. The patient has no personal history of cancer. VIEWS: The views performed were: bilateral craniocaudal with tomosynthesis; bilateral mediolateral oblique with tomosynthesis; left mediolateral oblique; and left exaggerated craniocaudal. FILMS COMPARED: The present examination has been compared to prior imaging studies performed at [facility] on 04/08/2018, and at [facility] on 01/13/2017. This study has been interpreted with the assistance of computer-aided detection. MAMMOGRAM FINDINGS: The breasts are heterogeneously dense, which could obscure a lesion on mammography. There are stable benign appearing calcifications seen in the right breast. There are no suspicious masses, suspicious calcifications, or new areas of architectural distortion. IMPRESSION: THERE IS NO MAMMOGRAPHIC EVIDENCE OF MALIGNANCY. A ROUTINE FOLLOW-UP MAMMOGRAM IN 1 YEAR IS RECOMMENDED. THE RESULTS OF THIS EXAM WERE SENT TO THE PATIENT. ACR BI-RADS Category 2 - Benign finding MAMMOGRAPHY NOTE: 1. A negative mammogram report should not delay a biopsy if a dominant of clinically suspicious mass is present. 2. Approximately 10% to 15% of breast cancers are not detected by mammography. 3. Adenosis and dense breasts may obscure an underlying neoplasm. Reported by: ROOSEVELT HOOPER MD Electonically Signed: [id number]
== END 2019-06-18 14:36 | disposition home or self-care (01) ==
LOC: BICMAMMO 14:35
PROVIDERS: ATTEND Nurse Practitioner Family
DX: Z12.31 Encounter for screening mammogram for malignant neoplasm of breast (principal); Z80.3 Family history of malignant neoplasm of breast
CPT/HCPCS: 77063; 77067

== ENCOUNTER 2020-06-21 09:36 | Outpatient (CLI) | payer MEDICARE | END 2020-06-21 09:37 | disposition home or self-care (01) | LOC: BICMAMMO 09:36 | PROVIDERS: ATTEND Nurse Practitioner Family | DX: Z12.31 Encounter for screening mammogram for malignant neoplasm of breast (principal); Z80.3 Family history of malignant neoplasm of breast | CPT/HCPCS: 77063; 77067 ==

== ENCOUNTER 2020-06-24 20:58 | Emergency (ER) | payer MEDICARE | END 2020-06-25 00:18 | disposition home or self-care (01) | LOC: ERS 20:58 | DX: S00.03XA Contusion of scalp, initial encounter (principal); I10 Essential (primary) hypertension; E03.9 Hypothyroidism, unspecified; Z79.899 Other long term (current) drug therapy; Z79.82 Long term (current) use of aspirin; W22.8XXA Striking against or struck by other objects, initial encounter | CPT/HCPCS: 70450; 72125 ==

== ENCOUNTER 2020-06-30 08:25 | Outpatient (CLI) | payer MEDICARE | END 2020-06-30 08:26 | disposition home or self-care (01) | LOC: NM 08:25 | PROVIDERS: ATTEND Nurse Practitioner Family | DX: K80.50 Calculus of bile duct without cholangitis or cholecystitis without obstruction (principal) | CPT/HCPCS: 78227; A9537 ==

== ENCOUNTER 2021-07-13 09:48 | Outpatient (CLI) | payer MEDICARE | END 2021-07-13 09:49 | disposition home or self-care (01) | LOC: BICMAMMO 09:48 | PROVIDERS: ATTEND Nurse Practitioner Family | DX: Z12.31 Encounter for screening mammogram for malignant neoplasm of breast (principal); Z80.3 Family history of malignant neoplasm of breast | CPT/HCPCS: 77063; 77067 ==

== ENCOUNTER 2022-08-21 13:48 | Outpatient (CLI) | payer MEDICARE | END 2022-08-21 13:49 | disposition home or self-care (01) | LOC: BICMAMMO 13:48 | PROVIDERS: ATTEND Nurse Practitioner Family | DX: Z12.31 Encounter for screening mammogram for malignant neoplasm of breast (principal); Z80.3 Family history of malignant neoplasm of breast | CPT/HCPCS: 77063; 77067 ==

== ENCOUNTER 2024-03-21 16:05 | Emergency (ER) | payer MEDICARE ==
[~2024-03-21 16:05] MED LIST: Iopamidol-370 76% 500 ML MDV (1 ML CHARGE) ONE
[2024-03-21 17:36] LABS: #Basophils 0.06 10x3/uL (0.0-0.2); %Basophils 0.6 % (0.0-1.0); %Eosinophils 2.8 % (0.0-10.0); %Lymphocytes 21.7 % (21.0-51.0); %Monocytes 7.4 % (0.0-10.0); %Neutrophils 66.8 % (42.0-75.0); Hematocrit 41.3 % (36.0-47.0); Hemoglobin 14.2 g/dL (12.0-16.0); Mean Corpuscular HGB CONC 34.4 g/dL (32.0-36.0); Mean Corpuscular Hemoglobin 29.3 pg (27.0-31.0); Mean Corpuscular Volume 85.2 fL (78.0-98.0); Mean Platelet Volume 10.3 fL (7.4-10.4); Platelet Count 257 10x3/uL (130-400); RBC Distribution Width 13.1 % (11.5-14.5); Red Blood Cell (RBC) Count 4.85 mill/uL (4.20-5.40)
[2024-03-21 17:55] LABS: ALT (SGPT) 23 U/L (Less than 34); AST (SGOT) 32 U/L (11-34); Albumin 4.2 g/dL (3.1-4.5); Alkaline Phosphatase 89 U/L (40-110); Anion Gap 15 mmol/L (10-20); BUN (Urea Nitrogen) 14 mg/dL (9.8-20.1); Bilirubin, Total 0.2 mg/dL (0.3-1.2); Calc. Creatinine Clearance 0 mL/min (70-130); Calcium 10.1 mg/dL (7.8-10.44); Carbon Dioxide 24 mmol/L (23-31); Chloride 108 mmol/L (98-107); Estimated GFR 93; Globulin 3.2 g/dL (2.4-3.5); Glucose 92 mg/dL (83-110); Lipase 34 U/L (8-78); Potassium 4.5 mmol/L (3.5-5.1); Protein, Total 7.4 g/dL (5.8-8.1); Sodium 142 mmol/L (136-145)
[2024-03-21 18:35] LABS: Bilirubin Negative (Negative); Blood, Urine Negative (Negative); CAUTI Indications for Culture Dysuria,urgency,freq; Clarity Turbid (Clear); Glucose, Urine (Dipstick) Normal (Negative); Ketone, Urine Negative (Negative); Leukocyte Negative Leu/uL (Negative); Nitrite Negative (Negative); Protein, Urine (Dipstick) Negative (Neg-Trace); RBC/HPF 0-3 HPF (0-3); Specific Gravity, Urine 1.021 (1.002-1.036); Urobilinogen Normal mg/dL (Less than 2); WBC/HPF 0-3 HPF (0-3); pH, Urine 6.5 (5.0-9.0)
[2024-03-21 18:36] LABS: Bacteria/HPF 1+ HPF (None Seen)
[2024-03-21 18:38] LABS: Urine Culture Reflex No No
== END 2024-03-21 19:20 | disposition home or self-care (01) ==
LOC: ERS 16:05
DX: E86.0 Dehydration (principal); R19.7 Diarrhea, unspecified; Z87.19 Personal history of other diseases of the digestive system; I10 Essential (primary) hypertension; E03.9 Hypothyroidism, unspecified; K21.9 Gastro-esophageal reflux disease without esophagitis; Z79.82 Long term (current) use of aspirin; Z79.899 Other long term (current) drug therapy
CPT/HCPCS: 74177; 80053; 81001; 83690; 85025; 96360; Q9967

== ENCOUNTER 2024-11-02 14:49 | Outpatient (CLI) | payer MEDICARE | END 2024-11-02 14:50 | disposition home or self-care (01) | LOC: BICMAMMO 14:49 | PROVIDERS: ATTEND Nurse Practitioner Family | DX: Z12.31 Encounter for screening mammogram for malignant neoplasm of breast (principal) | CPT/HCPCS: 77063; 77067 ==